=== PATIENT | female | born 1970 | race Caucasian/White ===

== ENCOUNTER → 2020-12-09 | Outpatient (CLI) | payer OTHER ==
--- NOTE | 2020-12-09 14:08 | REP ---
INDICATION: M79.671 M79.671 PAIN IN LEFT AND RIGHT FOOT. COMPARISON: None. TECHNIQUE: Three views of both feet were obtained. FINDINGS: There is no fracture, dislocation or bone texture abnormality of either foot. The joints are well maintained. There is no soft tissue abnormality. IMPRESSION: Normal radiographs of both feet. <Electronically signed by Michael Gonzalez > 12/09/20 [id number]
== END ==
LOC: M WUC 13:36
PROVIDERS: ATTEND Physician Assistant
DX: M79.672 Pain in left foot (principal); M79.671 Pain in right foot

== ENCOUNTER → 2020-12-25 | Outpatient (CLI) | payer OTHER ==
--- NOTE | 2020-12-25 11:34 | REP ---
INDICATION: DISORDER OF MENSES COMPARISON: None. TECHNIQUE: Transabdominal pelvic ultrasound followed by transvaginal examination for better evaluation of the endometrium and adnexa with color Doppler evaluation of the ovaries. FINDINGS: Bladder is unremarkable and measures 5.8 x 4.7 x 2.8 cm. Heterogeneous anteverted uterus measures 8.5 x 4.2 x 5.9 cm and includes 1.2 x 1.1 x 1.1 cm right anterior intramural fibroid and 3.0 x 2.2 x 2.3 cm anterior intramural/submucosal fibroid. The endometrial complex measures 3 mm thickness. Left ovary is not visualized. Right ovary measures 2.8 x 1.9 x 3.1 cm and includes 2.4 cm anechoic possibly physiologic cyst. RI equals 0.48. No pelvic fluid or adnexal mass lesion. IMPRESSION: 1. Heterogeneous myomatous uterus. 2. 2.4 cm right ovarian cyst possibly physiologic. Consider follow-up in 4-6 weeks to evaluate for resolution. <Electronically signed by Marty James > 12/25/20 [id number]
== END ==
LOC: M RAD 10:41
PROVIDERS: ATTEND Physician Assistant
DX: N83.201 Unspecified ovarian cyst, right side (principal); N92.6 Irregular menstruation, unspecified

== ENCOUNTER → 2021-01-22 | Outpatient (CLI) | payer OTHER ==
--- NOTE | 2021-01-22 18:05 | REP ---
INDICATION: CYST OF RT OVARY. COMPARISON: 12/25/2020. TECHNIQUE: Transabdominal and transvaginal scanning performed. FINDINGS: Uterine dimensions are 8.9 x 4.5 x 5.4 cm. Endometrial echo is 4 mm in AP dimension and centrally placed. Hyperechoic fibroid anteriorly measures 2.9 x 2.1 x 2.9 cm. The bladder measures 4.7 x 2.9 x 4.5cm. The right ovary has dimensions of 2.9 x 1.6 x 3.0 cm. Doppler evaluation demonstrates a venous flow in the right ovary. There is a dominant follicle of the right ovary 2.4 x 2.4 x 1.4 cm. The left ovary is not visualized. There is no adnexal mass identified. No free fluid is seen in the cul-de-sac. IMPRESSION: Fibroid changes of the uterus. Dominant follicle right ovary 2.4 cm. No other evidence of adnexal mass or free fluid. <Electronically signed by Tony Marti > 01/22/21 [id number]
== END ==
LOC: M RAD 15:54
PROVIDERS: ATTEND Physician Assistant
DX: N83.201 Unspecified ovarian cyst, right side (principal); D25.9 Leiomyoma of uterus, unspecified

== ENCOUNTER → 2024-06-08 | Outpatient (CLI) | payer OTHER | LOC: M WHC 10:08 | PROVIDERS: ATTEND Nurse Practitioner Family | DX: Z12.31 Encounter for screening mammogram for malignant neoplasm of breast (principal); R92.313 Mammographic fatty tissue density, bilateral breasts ==

== ENCOUNTER → 2025-02-21 | Outpatient (CLI) | payer OTHER | LOC: M RAD 07:36 | PROVIDERS: ATTEND Nurse Practitioner Family | DX: M79.89 Other specified soft tissue disorders (principal) ==